=== PATIENT | female | born 1970 | race Two or more races ===

== ENCOUNTER 2017-06-08 12:50 | Emergency (ER) | payer SELFPAY ==
[~2017-06-08] VITALS: Ht 157.5 cm; Wt 64.4 kg
--- NOTE | 2017-06-08 13:42 | PHYS DOC ---
Adult General Chief Complaint Chief Complaint: VAGINAL BLEEDING HPI HPI Patient is a 47 year old female who presents with left lower quadrant pubic abdominal pain. She states normally her periods are on the eighth of each month and her last one was April 01. She states she's had no vaginal bleeding until yesterday when she started having bleeding. She took a home test a month ago 3 times the first 2 were negative and the third was positive. She states she's having left lower "womb" pain. She denies any vaginal discharge. She states she hasn't taken anything for the pain or discomfort as of yet. Review of Systems Review of Systems Constitutional: Denies fever or chills Eyes: Denies change in visual acuity, redness, or eye pain HENT: Denies nasal congestion or sore throat Respiratory: Denies cough or shortness of breath Cardiovascular: No additional information not addressed in HPI GI: Denies abdominal pain, nausea, vomiting, bloody stools or diarrhea : Denies dysuria or hematuria Musculoskeletal: Denies back pain or joint pain Integument: Denies rash or skin lesions Neurologic: Denies headache, focal weakness or sensory changes Endocrine: Denies polyuria or polydipsia Current Medications Current Medications Current Medications Medications (Trade) Dose Ordered Sig/Elli Start Time Stop Time Status Last Admin Dose Admin Acetaminophen/ Hydrocodone Bitart (Lortab 5/325) 2 tab 1X ONCE 06/08/17 16:00 06/08/17 16:01 DC 06/08/17 15:44 2 TAB Allergies Allergies Allergies Coded Allergies Type Severity Reaction Last Updated Verified No Known Drug Allergies 06/08/17 No Physical Exam Physical Exam Constitutional: Well developed, well nourished, no acute distress, non-toxic appearance. HENT: Normocephalic, atraumatic, bilateral external ears normal, oropharynx moist, no oral exudates, nose normal. Eyes: PERRLA, EOMI, conjunctiva normal, no discharge. Neck: Normal range of motion, no tenderness, supple, no stridor. Cardiovascular:Heart rate regular rhythm, no murmur Lungs & Thorax: Bilateral breath sounds clear to auscultation Abdomen/pelvic: Bowel sounds normal, soft, no tenderness, no masses, no pulsatile masses. Pelvic Exam: [facility] [employer] Services present Abdomen: Tender palpation in the left adnexal area no masses appreciated External Genitalia: Normal Skin Speculum: Normal vaginal mucosa, normal cervical discharge Bimanual: No adnexal masses tender palpation in the left adnexal area Back: No tenderness, no CVA tenderness. Extremities: No tenderness, no cyanosis, no clubbing, ROM intact, no edema. Neurologic: Alert and oriented X 3, normal motor function, normal sensory function, no focal deficits noted. Psychologic: Affect normal, judgement normal, mood normal. Current Patient Data Vital Signs Vital Signs Date Time Temp Pulse Resp B/P (MAP) Pulse Ox O2 Delivery O2 Flow Rate FiO2 06/08/17 17:00 82 18 129/89 (102) 99 Room Air 06/08/17 15:01 99.0 99.0 Lab Values Laboratory Tests Test 06/08/17 13:35 06/08/17 13:38 06/08/17 14:58 Urine Collection Type Void Urine Color Yellow Urine Clarity Clear Urine pH 7.5 Urine Specific [place] 1.015 Urine Protein 30 mg/dL (NEG-TRACE) Urine Glucose (UA) Negative mg/dL (NEG) Urine Ketones (Stick) Negative mg/dL (NEG) Urine Blood Large (NEG) Urine Nitrite Negative (NEG) Urine Bilirubin Negative (NEG) Urine Urobilinogen Dipstick 0.2 mg/dL (0.2 mg/dL) Urine Leukocyte Esterase Trace (NEG) Urine RBC >40 /HPF (0-2) Urine WBC 1-4 /HPF (0-4) Urine Squamous Epithelial Cells Mod /LPF Urine Bacteria Few /HPF (0-FEW) POC Urine HCG, Qualitative Hcg negative (Negative) Chlamydia DNA Probe Negative (Negative) Neisseria gonorrhoeae DNA Probe Negative (Negative) Microbiology 06/08/17 Wet Prep - Final, Complete 06/08/17 Urine Culture - Final, Complete 06/08/17 Urine Culture Result 1 (ARNEL) - Final, Complete Microbiology 06/08/17 Wet Prep - Final, Complete EKG EKG [] Radiology/Procedures Radiology/Procedures [facility] [address] [place] [address] IMAGING REPORT Signed PATIENT: PORFIRIO DEWEY ACCOUNT: [id number] : 1970 LOCATION: ER AGE: 47 SEX: F EXAM STATUS: REG ER ORD. PHYSICIAN: JW PITTMAN MD REASON: LLQ PELVIC PAIN PROCEDURE: PELVIS W/TV Pelvic sonography (transabdominal and transvaginal exam) Clinical indications: Left lower quadrant pain. Transabdominal sonography: The uterus is anteverted in position. The longitudinal and AP and transverse dimensions of the uterus are 9.7 cm and 3.7 cm and 6.2 cm respectively. The endometrial canal measures 11 mm in thickness. It is not well visualized. Therefore, transvaginal sonography will be performed. No uterine mass or fibroid is seen otherwise. No free fluid is seen within the cul-de-sac. The right ovary measures 3.0 cm and 1.9 cm and 1.9 cm in size and is normal. The left ovary measures 2.4 cm and 1.7 cm and 2.4 cm in size and contains a small follicular cyst. No adnexal mass is seen. Transvaginal sonography: The endometrial canal measures 11 mm in thickness and is echogenic. This is consistent with the secretory phase of the menstrual cycle. No uterine mass or fibroid is seen otherwise. The left ovary contains a small follicular cyst measuring 11 mm which is a normal finding. Color Doppler flow is seen within the left ovary. The right ovary is normal. Color Doppler flow is seen within the right ovary. No adnexal masses are seen. No free fluid is evident. IMPRESSION: Unremarkable pelvic examination for premenopausal female patient. DICTATED and SIGNED BY: MAYA ECHAVARRIA MD DATE: 06/08/17 162 CC: JW PITTMAN MD; NO PCP ~ RUN DATE: 06/08/17 PAGE 1 RUN TIME: 1706 [facility] [address] [place] [address] Víctor Gill M.D., [employer] Survey Worker PATIENT: PORFIRIO DEWEY ACCT: [id number] LOC: ER U : [id number] AGE/SX: 47/F ROOM: REG : 06/08/[address]: JW PITTMAN MD : 1970 BED: DIS : STATUS: SHIVANI DORAN TLOC: SPEC #: [id number] BETSY: 06/08/17 STATUS: COMP REQ #: [id number] RECD: 06/08/[address]: JW PITTMAN MD SOURCE: VAGINAL ENTR: 06/08/[address]: SPDES: ORDERED: WET PREP COMMENTS: Has specimen been collected/obtained? Y Procedure Result WET PREP Final YEAST NONE SEEN TRICHOMONAS NONE SEEN CLUE CELLS NONE SEEN ALTERED HAN ALTERED HAN PRESENT SUGGESTIVE OF BACTERIAL VAGINOSIS WBCS OCCASIONAL RBCS FEW SQUAMOUS EPS MODERATE END OF REPORT Impressions: Left lower quadrant pain Vaginal bleeding Course & Med Decision Making Course & Med Decision Making Pertinent Labs and Imaging studies reviewed. (See chart for details) Patient is not by urine test. Pelvic exam she is tender in the left quadrant and ultrasound shows a cyst in this area. She does have BV. We 'll treat with Flagyl and she feels better. She's being discharged home with return precautions. Dragon Disclaimer Dragon Disclaimer This electronic medical record was generated, in whole or in part, using a voice recognition dictation system. Departure Departure Impression: Primary Impression: Vaginal bleeding Additional Impression: Bacterial vaginal infection Disposition: HOME, SELF-CARE Condition: STABLE Patient Instructions: Abdominal Pain, [id number] Additional Instructions: You are not . The ultrasound shows you have a cyst in your ovaries it can be causing her pain. Your being discharged home. You have a bacterial vaginosis which is a overgrowth of neck or bacteria in your vagina that will need to be treated with antibiotics for the next week. Please don't drink any alcohol while taking this medicine. You will need to follow-up with your [facility] physician. Return ER if you have lightheadedness dizziness, severe abdominal pain, or other concerns. Scripts Metronidazole (FLAGYL) 500 Mg Tablet 1 TAB PO BID, #14 TAB Prov: JW PITTMAN MD 06/08/17 Problem Qualifiers JW PITTMAN MD Jun 08, 2017 13:42
[2017-06-08 14:38] LABS: BILIRUBIN,URINE NEGATIVE (NEG); GLUCOSE,URINE NEGATIVE (NEG); NITRITE,URINE NEGATIVE (NEG); PH,URINE 7.5; PROTEIN,URINE 30 mg/dL (NEG-TRACE); UROBILINOGEN,URINE 0.2 mg/dL (0.2 mg/dL)
[2017-06-08 14:47] LABS: RBC,URINE >40 /HPF (0-2)
[2017-06-08 14:48] LABS: BACTERIA,URINE FEW /HPF (0-FEW); SQUAMOUS EPITHELIAL CELL,UR MOD /LPF
[2017-06-08] MEDS ORDERED: HYDROcodone/APAP 5/325MG 1 TAB TABLET PO ONE (16:00)
--- NOTE | 2017-06-08 16:34 | RAD ---
Pelvic sonography (transabdominal and transvaginal exam) Clinical indications: Left lower quadrant pain. Transabdominal sonography: The uterus is anteverted in position. The longitudinal and AP and transverse dimensions of the uterus are 9.7 cm and 3.7 cm and 6.2 cm respectively. The endometrial canal measures 11 mm in thickness. It is not well visualized. Therefore, transvaginal sonography will be performed. No uterine mass or fibroid is seen otherwise. No free fluid is seen within the cul-de-sac. The right ovary measures 3.0 cm and 1.9 cm and 1.9 cm in size and is normal. The left ovary measures 2.4 cm and 1.7 cm and 2.4 cm in size and contains a small follicular cyst. No adnexal mass is seen. Transvaginal sonography: The endometrial canal measures 11 mm in thickness and is echogenic. This is consistent with the secretory phase of the menstrual cycle. No uterine mass or fibroid is seen otherwise. The left ovary contains a small follicular cyst measuring 11 mm which is a normal finding. Color Doppler flow is seen within the left ovary. The right ovary is normal. Color Doppler flow is seen within the right ovary. No adnexal masses are seen. No free fluid is evident. IMPRESSION: Unremarkable pelvic examination for premenopausal female patient.
[2017-06-08 17:00] VITALS: BP 129/89
[2017-06-08] MEDS ORDERED: METR500T PO (17:25)
== END 2017-06-08 17:38 | disposition home or self-care (01) ==
LOC: ER 12:50
DX: N93.9 Abnormal uterine and vaginal bleeding, unspecified (principal); N76.0 Acute vaginitis
CPT/HCPCS: 76830; 76856; 81001; 81025; 87086; 87491; 87591; 99285; Q0111